=== PATIENT | female | born 1970 | race Caucasian/White ===

== ENCOUNTER → 2023-07-22 | Outpatient (REF) ==
[~2023-07-22] MED LIST: ACET500C OR; BACL10TA2 OR; CELE1CAP4 OR; LEXA1TAB OR; MELOPOW OR; PREG50CA OR; TRAM50TA2 OR; TRAZ50TA OR; hydrocodone PO
== END ==
LOC: M PLAIMG 12:07
PROVIDERS: ATTEND Internal Medicine
DX: R52 Pain, unspecified (principal)

== ENCOUNTER → 2023-08-15 | Outpatient (REF) | LOC: M PLAIMG 09:53 | PROVIDERS: ATTEND Internal Medicine | DX: M25.512 Pain in left shoulder (principal); M25.562 Pain in left knee ==